=== PATIENT | female | born 1990 | race Caucasian/White ===

== ENCOUNTER 2019-06-22 02:34 | Inpatient (IN) | payer BC ==
[~2019-06-22] VITALS: Ht 170.2 cm; Wt 94.1 kg
[2019-06-22] VITALS (28 sets, daily range): BP systolic 107–146; BP diastolic 55–86; PULSE 73–113; TEMP 97.4–98.9
[~2019-06-22 02:34] MED LIST: AMOXICILLIN 50500 MG PO; BENADRYL25 MG PO; DROSPIRENONE; IBUPROFEN 200200 MG PO; LAMICTAL; LEVAQUIN 5500 MG/TAB PO; LORTAB 5/500 501 TAB PO; MOTRIN 600600 MG/TAB PO; NEXIUM40 MG PO; PERCOCET 325 MG1 TA2 PO; PYRIDIUM 100MG100 MG PO; TESSALON PERLE100 MG PO; VALTREX 50500 MG/TAB PO
[2019-06-22] MEDS ORDERED: TAMIFLU 75MG75 MG PO (02:54)
[2019-06-22] MEDS ORDERED: PRENATAL MVI (02:55)
--- NOTE | 2019-06-22 03:00 | NUR ---
0245- Patient to LR6 by wheelchair with . Patient oriented to labor room. Patient into restroom to void and change into clean gown. 0250- EFM and TOCO on and tracing. Patient reports contractions since 183 last evening that have increased in strength and occur every 5-10 minutes. Patient reports minimal bloody show. Patient denies LOF. Assessment completed. 0255- SVE /-1. 0300- See Physician Notification. 0305- LEONARDO Haq notified for epidural request. 0305- See Physician Notification. 0315- IV started. Labs drawn and sent. LR bolus infusing per protocol. 0330- LEONARDO Haq at bedside. Patient repositioned to sitting upright for epidural placement. EFM and TOCO on and tracing intermittently due to maternal position. 0341- See Anesthesia Record. 0415- Patient reports intermittent nausea. 0425- Arboleda catheter placed. Dark yellow urine return noted. 0430- Encouraged patient to rest.
[2019-06-22 03:40] LABS: BASO % 0.3 % (0.0-2.0); EOS % 0.4 % (0-4.0); GRAN # 7.4 (1.4-6.5); GRAN % 75.6 % (42.2-75.2); HEMATOCRIT 37.6 % (37.0-47.0); HEMOGLOBIN 13.1 g/dl (12.5-16.0); LYMPH # 1.7 (1.2-3.4); MEAN CELL VOLUME 92 fl (80.0-100.0); MEAN CORPUSCULAR HEMOGLOBIN 32 pg (27.0-31.0); MEAN CORPUSCULAR HGB CONC 35 g/dl (33.0-37.0); MEAN PLATELET VOLUME 10.4 fl (7.4-10.4); MONO # 0.6 (0.1-0.6); MONO % 6.3 % (1.7-9.3); PLATELET COUNT 208 K/mm3 (130-400); RED BLOOD COUNT 4.09 M/mm3 (4.10-5.30); REDCELL DISTRIBUTION WIDTH-CV 13.1 % (11.5-14.5)
--- NOTE | 2019-06-22 06:45 | NUR ---
SVE per this RN 9-10/100/0. Odor noted with vaginal exam with pea colored tinged fluid. [place] membranes palpated with SVE. Pt denies feeling SROM. Pericare performed. Dr. Anton notified. See physician notification.
--- NOTE | 2019-06-22 07:30 | NUR ---
Dr. Anton at bedside. SVE per provider C/+2. Pt prepped for delivery. 0732-Pt begins pushing. Moves vertex well. 0737- of viable female attended by Dr. Anton. Cord clamped x2 and cut from umbilicus. dried and bulb suctioned. Placed on mother's abdomen. Care of infant to Homar Lovelace RN. 0741- of placenta. Fundus firm at umbilicus. Bleeding WNL. Pitocin bolus infusing per protocol. Second degree laceration repaired per Dr. Anton. Pericare performed. Ice pack applied. Bed locked in low position. Call light within reach. No questions or concerns at this time.
[2019-06-23 07:08] VITALS: BP 122/77; PULSE 86; TEMP 97.9
[2019-06-23] MEDS ORDERED: IBU600 MG PO (11:27)
[2019-06-23 16:30] VITALS: BP 116/68; PULSE 85; TEMP 97.9
--- NOTE | 2019-06-23 17:15 | NUR ---
Patient given discharge instructions, denies questions. Escorted off unit by Samanta Morris RN.
== END 2019-06-23 17:15 | disposition home or self-care (01) | DRG 807 ==
LOC: LDRO 02:34 → LDR 02:55 → OB 11:30
PROVIDERS: Obstetrics & Gynecology; ADMIT Obstetrics & Gynecology
PROC: 10E0XZZ Delivery of Products of Conception, External Approach (ICD-10-PCS; principal; 2019-06-22)
PROC: 0KQM0ZZ Repair Perineum Muscle, Open Approach (ICD-10-PCS; 2019-06-22)
DX: O77.0 Labor and delivery complicated by meconium in amniotic fluid (principal); Z37.0 Single live birth; O70.1 Second degree perineal laceration during delivery; Z3A.40 40 weeks gestation of pregnancy
CPT/HCPCS: J2405; J2590; J7120

== ENCOUNTER → 2019-10-05 | Outpatient (CLI) | payer BC ==
[~2019-10-05] MED LIST changes: +IBU600 MG PO; +PRENATAL MVI; +TAMIFLU 75MG75 MG PO
== END ==
LOC: COL.RAD 09:25
DX: K80.20 Calculus of gallbladder without cholecystitis without obstruction (principal)